=== PATIENT | male | born 1990 | race Caucasian/White ===

== ENCOUNTER 2017-11-07 18:26 | Emergency (ER) | payer BC, OTHER ==
[~2017-11-07] VITALS: Ht 188 cm; Wt 64.9 kg
[~2017-11-07 18:26] MED LIST: ONDA8TAB6 PO; ZOF4T PO
[2017-11-07 18:30] VITALS: BP 129/64
[2017-11-07] MEDS ORDERED: BACDS PO (19:20)
== END 2017-11-07 19:28 | disposition home or self-care (01) ==
LOC: ER 18:27
DX: L03.114 Cellulitis of left upper limb (principal); Z90.49 Acquired absence of other specified parts of digestive tract; Z88.1 Allergy status to other antibiotic agents; Z79.899 Other long term (current) drug therapy
CPT/HCPCS: 99283